=== PATIENT | male | born 1975 | race Caucasian/White ===

== ENCOUNTER 2020-07-13 20:38 | Inpatient (IN) | payer BC ==
[~2020-07-13] VITALS: Ht 177.8 cm; Wt 103.6 kg
[2020-07-13] MEDS ORDERED: SODIUM CHLORIDE 0.9% 1,000ML IVBOLUS ONE ×2 (22:00→23:00)
[2020-07-13] MEDS ORDERED: ONDANSETRON 2MG/ML, 2ML IVPush ONE (22:00)
[2020-07-13] MEDS ORDERED: SODIUM CHLORIDE FLUSH 10ML SYR IVF ONE (22:00)
[2020-07-13] MEDS ORDERED: MORPHINE SULFATE 4 MG/ML, 1ML ONE ×2 (22:08→23:51)
[2020-07-13] MEDS ORDERED: ONDANSETRON 2MG/ML, 2ML ONE (22:08)
[2020-07-13] MEDS: MORPHINE SULFATE 4 MG/ML, 1ML IVPush PRN ×2 (22:10→23:53)
[2020-07-13 22:29] LABS: MEAN CORPUSCULAR HEMOGLOBIN 31.1 pg (27.5-34.5); MEAN CORPUSCULAR HGB CONC 33.4 g/dL (33.2-36.2); MEAN PLATELET VOLUME 7.9 fL (7.4-10.4); PLATELET COUNT 105 x10^3/uL (130-400); RED BLOOD COUNT 4.87 x10^6/uL (4.38-5.82); RED CELL DISTRIBUTION WIDTH 12.9 % (9.4-14.8)
[2020-07-13 22:32] LABS: ALANINE AMINOTRANSFERASE 39 U/L (12-78); ALBUMIN 3.2 g/dL (3.4-5.0); ANION GAP 9 mmol/L (5-15); CALCIUM 8.4 mg/dL (8.5-10.1); CHLORIDE 96 mmol/L (98-107); CREATININE 1.25 mg/dL (0.7-1.3)
--- NOTE | 2020-07-13 22:33 | NUR ---
PT RESTING IN BED WITH BED SIDE, PT A/O X4 AND ON MONITOR. PT DENIED ANY WANTS OR NEEDS AT THIS TIME. RN WILL CONTINUE TO MONITOR PT VITALS
[2020-07-13 22:34] LABS: ALKALINE PHOSPHATASE 50 U/L (45-117); BILIRUBIN,TOTAL 1.4 mg/dL (0.2-1.0); TOTAL PROTEIN 7.2 g/dL (6.4-8.2)
--- NOTE | 2020-07-13 23:34 | NUR ---
PT REMINDED MULTIPLE TIMES THAT WE NEED URINE FOR UA TEST. PT STATED "HE STILL CAN NOT GO"
[2020-07-13] MEDS ORDERED: OMNIPAQUE 350 MG/ML, 100ML BOTTLE ONE (23:38)
[2020-07-13 23:58] LABS: BASOPHILS % (AUTO) 0 % (0-1); EOSINOPHILS % (AUTO) 0 % (1-7); LYMPHOCYTES # (AUTO) 0.41 x10^3/uL (1-3.4); LYMPHOCYTES % (AUTO) 4 % (22-44); MD SCAN; MONOCYTES # (AUTO) 0.77 x10^3/uL (0.2-0.8); MONOCYTES % (AUTO) 7 % (2-9); NEUTROPHILS # (AUTO) 9.69 x10^3/uL (1.8-6.8); NEUTROPHILS % (AUTO) 89 % (42-75)
[2020-07-14] MEDS ORDERED: CEFOTETAN PMX 2GM/50ML 50 ML IV ONE (00:30)
[2020-07-14 00:52] LABS: MICROSCOPIC INDICATED
[2020-07-14] MEDS ORDERED: BUPIVACAINE/PF 0.5% ONE (00:55)
[2020-07-14] MEDS ORDERED: EPINEPHRINE 1 MG/ML, 1ML ONE ×2 (00:55→02:49)
[2020-07-14] MEDS ORDERED: FENTANYL PF 100 MCG/2ML ONE ×4 (01:08→02:57)
[2020-07-14] MEDS ORDERED: MIDAZOLAM 1 MG/ML, 2ML ONE (01:08)
[2020-07-14] MEDS ORDERED: DEXAMETHASONE 4 MG/ML, 1ML ONE ×2 (01:14→02:49)
[2020-07-14] MEDS ORDERED: SUGAMMADEX 200 MG/2 ML IVPush ONE ×2 (01:14→03:13)
[2020-07-14] MEDS ORDERED: ONDANSETRON 2MG/ML, 2ML ONE (01:14)
[2020-07-14] MEDS ORDERED: LIDOCAINE-MPF 2% ,5ML ONE (01:14)
[2020-07-14] MEDS ORDERED: PROPOFOL 10 MG/ML, 20ML ONE (01:14)
[2020-07-14] MEDS ORDERED: SUCCINYLCHOLINE 20 MG/ML, 10ML ONE (01:14)
[2020-07-14] MEDS ORDERED: PROMETHAZINE 25 MG/ML, 1ML IVPush PRN (01:30)
[2020-07-14] MEDS ORDERED: ONDANSETRON 2MG/ML, 2ML IVPush PRN (01:30)
[2020-07-14] MEDS ORDERED: FENTANYL PF 100 MCG/2ML IV PRN (01:30)
[2020-07-14] MEDS ORDERED: EPHEDRINE 50 MG/ML, 1ML IVPush PRN (01:30)
[2020-07-14] MEDS ORDERED: OXYcodone 5 MG/5 ML ORAL.SOL UDC PO PRN (01:30)
[2020-07-14] MEDS ORDERED: LABETALOL 5MG/ML, 20ML IV PRN (01:30)
[2020-07-14] MEDS ORDERED: HYDROmorphone 1 MG/ML, 1ML INJ IVPush PRN (01:30)
[2020-07-14] MEDS ORDERED: MEPERIDINE/PF 25MG/0.5ML IVPush PRN (01:30)
[2020-07-14] MEDS ORDERED: hydrALAzine 20 MG/ML, 1ML IV PRN (01:30)
[2020-07-14] MEDS ORDERED: ACETAMINOPHEN 325 MG TABLET PO PRN ×2 (01:30→05:30)
[2020-07-14] MEDS ORDERED: ROCURONIUM 10 MG/ML,10ML ONE (02:26)
[2020-07-14] MEDS ORDERED: BUPIVACAINE/PF 0.25% ONE ×2 (02:49→02:50)
[2020-07-14] MEDS ORDERED: ACETAMINOPHEN 650 MG/20.3 ML UDC ONE (03:50)
[2020-07-14] MEDS ORDERED: OXYcodone 5 MG/5 ML ORAL.SOL UDC ONE (03:50)
[2020-07-14] MEDS: D5%-0.45NACL+KCL 20MEQ 1,000 ML IV SCH ×2 (05:27→17:42)
[2020-07-14] MEDS: CIPROFLOXACIN/PMX 400MG/200ML 200 ML IVPB SCH ×2 (05:28→18:24)
[2020-07-14] MEDS ORDERED: ONDANSETRON 2MG/ML, 2ML IV PRN ×2 (05:30)
[2020-07-14] MEDS ORDERED: DIPHENHYDRAMINE 25 MG CAPSULE PO PRN (05:30)
[2020-07-14] MEDS ORDERED: morphine SULFATE 10 MG/ML, 1ML IV PRN (05:30)
[2020-07-14] MEDS ORDERED: DIPHENHYDRAMINE 50 MG/ML, 1ML IV PRN (05:30)
[2020-07-14] MEDS ORDERED: ACETAMINOPHEN 650 MG SUPP PR PRN (05:30)
[2020-07-14 06:11] LABS: MEAN CORPUSCULAR HEMOGLOBIN 30.6 pg (27.5-34.5); MEAN CORPUSCULAR HGB CONC 32.7 g/dL (33.2-36.2); MEAN PLATELET VOLUME 7.4 fL (7.4-10.4); PLATELET COUNT 89 x10^3/uL (130-400); RED BLOOD COUNT 4.21 x10^6/uL (4.38-5.82); RED CELL DISTRIBUTION WIDTH 13.3 % (9.4-14.8)
[2020-07-14 06:15] LABS: ALBUMIN 2.6 g/dL (3.4-5.0); ANION GAP 5 mmol/L (5-15); CALCIUM 7.5 mg/dL (8.5-10.1); CHLORIDE 101 mmol/L (98-107); CREATININE 1.27 mg/dL (0.7-1.3)
[2020-07-14 06:33] LABS: BASOPHILS % (AUTO) 0 % (0-1); EOSINOPHILS % (AUTO) 0 % (1-7); LYMPHOCYTES # (AUTO) 0.24 x10^3/uL (1-3.4); LYMPHOCYTES % (AUTO) 3 % (22-44); MD SCAN; MONOCYTES # (AUTO) 0.15 x10^3/uL (0.2-0.8); MONOCYTES % (AUTO) 2 % (2-9); NEUTROPHILS # (AUTO) 7.15 x10^3/uL (1.8-6.8); NEUTROPHILS % (AUTO) 95 % (42-75)
[2020-07-14] MEDS: METRONIDAZOLE PMX 500MG/100ML 100 ML IVPB SCH ×2 (06:47→13:34)
[2020-07-14 07:45] VITALS: BP 107/76
[2020-07-14 12:30] VITALS: BP 110/75
[2020-07-14] MEDS: ENOXAPARIN 30 MG/0.3 ML SQ SCH (17:54)
[2020-07-14 19:58] VITALS: BP 129/77
[2020-07-14] MEDS: OXYcodone/APAP 5/325MG TABLET PO PRN (21:20)
[2020-07-15] MEDS: OXYcodone/APAP 5/325MG TABLET PO PRN (01:41)
[2020-07-15 01:50] VITALS: BP 128/79
[2020-07-15] MEDS: D5%-0.45NACL+KCL 20MEQ 1,000 ML IV SCH ×3 (02:36→21:07)
[2020-07-15] MEDS ORDERED: FLU VACC QS2020-21(6MOS UP)/PF 60MCG/0.5 ML SYR IM-VACC ONE (03:00)
[2020-07-15] MEDS: ENOXAPARIN 30 MG/0.3 ML SQ SCH ×2 (05:51→16:13)
[2020-07-15 07:47] VITALS: BP 117/69
[2020-07-15] MEDS: CIPROFLOXACIN/PMX 400MG/200ML 200 ML IV SCH ×2 (10:50→22:28)
[2020-07-15] MEDS: LACTOBACILLUS CHEW TABLET PO SCH ×3 (10:50→21:06)
[2020-07-15] MEDS: METRONIDAZOLE PMX 500MG/100ML 100 ML IV SCH ×2 (13:07→21:06)
[2020-07-15 13:34] VITALS: BP 111/77
[2020-07-15] MEDS: KETOROLAC 30 MG/1 ML IVPush PRN ×2 (16:19→22:28)
[2020-07-15 19:45] VITALS: BP 137/83
[2020-07-16 03:30] VITALS: BP 125/74
[2020-07-16] MEDS: METRONIDAZOLE PMX 500MG/100ML 100 ML IV SCH (05:36)
[2020-07-16] MEDS: ENOXAPARIN 30 MG/0.3 ML SQ SCH ×2 (05:36→17:07)
[2020-07-16] MEDS: D5%-0.45NACL+KCL 20MEQ 1,000 ML IV SCH ×3 (05:36→19:30)
[2020-07-16 06:22] LABS: BASOPHILS % (AUTO) 0 % (0-1); EOSINOPHILS % (AUTO) 0 % (1-7); LYMPHOCYTES % (AUTO) 11 % (22-44); MEAN CORPUSCULAR HEMOGLOBIN 31.2 pg (27.5-34.5); MEAN CORPUSCULAR HGB CONC 33.9 g/dL (33.2-36.2); MEAN PLATELET VOLUME 8.6 fL (7.4-10.4); MONOCYTES % (AUTO) 11 % (2-9); NEUTROPHILS % (AUTO) 78 % (42-75); PLATELET COUNT 108 x10^3/uL (130-400); RED BLOOD COUNT 3.51 x10^6/uL (4.38-5.82); RED CELL DISTRIBUTION WIDTH 13.4 % (9.4-14.8)
[2020-07-16 07:00] VITALS: BP 126/69
[2020-07-16] MEDS: LACTOBACILLUS CHEW TABLET PO SCH ×3 (08:03→21:08)
[2020-07-16] MEDS: KETOROLAC 30 MG/1 ML IVPush PRN ×3 (08:03→23:18)
[2020-07-16 08:18] LABS: MD SCAN
[2020-07-16 08:31] LABS: CLOSTRIDIUM DIFFICILE ANTIGEN NEGATIVE; CLOSTRIDIUM DIFFICILE TOXIN NEGATIVE (Negative)
[2020-07-16] MEDS: CIPROFLOXACIN 500 MG TABLET PO SCH ×2 (11:19→23:18)
[2020-07-16 13:16] VITALS: BP 118/74
[2020-07-16] MEDS: metroNIDAZOLE 500 MG TABLET PO SCH ×2 (13:25→21:08)
[2020-07-16] MEDS ORDERED: KETOROLAC 30 MG/1 ML ONE (13:30)
[2020-07-16 18:53] VITALS: BP 131/78
[2020-07-17] MEDS: D5%-0.45NACL+KCL 20MEQ 1,000 ML IV SCH (03:30)
[2020-07-17 04:00] VITALS: BP 128/69
[2020-07-17] MEDS: metroNIDAZOLE 500 MG TABLET PO SCH (05:56)
[2020-07-17] MEDS: KETOROLAC 30 MG/1 ML IVPush PRN (05:57)
[2020-07-17] MEDS: ENOXAPARIN 30 MG/0.3 ML SQ SCH (05:57)
[2020-07-17 07:26] VITALS: BP 143/77
[2020-07-17] MEDS: LACTOBACILLUS CHEW TABLET PO SCH (08:35)
[2020-07-17 08:59] LABS: BASOPHILS % (AUTO) 0 % (0-1); EOSINOPHILS % (AUTO) 1 % (1-7); LYMPHOCYTES % (AUTO) 13 % (22-44); MEAN CORPUSCULAR HEMOGLOBIN 30.7 pg (27.5-34.5); MEAN CORPUSCULAR HGB CONC 33.3 g/dL (33.2-36.2); MEAN PLATELET VOLUME 7.5 fL (7.4-10.4); MONOCYTES % (AUTO) 13 % (2-9); NEUTROPHILS % (AUTO) 73 % (42-75); PLATELET COUNT 221 x10^3/uL (130-400); RED BLOOD COUNT 4.06 x10^6/uL (4.38-5.82); RED CELL DISTRIBUTION WIDTH 12.8 % (9.4-14.8)
[2020-07-17 09:23] LABS: MD SCAN
[2020-07-17] MEDS ORDERED: OXYC-302 PO (10:12)
[2020-07-17] MEDS ORDERED: CIPR500T3 PO (10:13)
[2020-07-17] MEDS ORDERED: METR-90 PO (10:14)
[2020-07-17 10:55] VITALS: BP 138/82
== END 2020-07-17 11:30 | disposition home or self-care (01) | DRG 340 ==
LOC: ED 23:41 → EDIP 07-14 00:31 → 4NE 07-14 04:53
PROVIDERS: ADMIT Surgery; ATTEND Surgery
PROC: 0WJG4ZZ Inspection of Peritoneal Cavity, Percutaneous Endoscopic Approach (ICD-10-PCS; 2020-07-14)
PROC: 0DTJ0ZZ Resection of Appendix, Open Approach (ICD-10-PCS; principal; 2020-07-14 01:00)
DX: K35.32 Acute appendicitis with perforation, localized peritonitis, and gangrene, without abscess (principal); Z20.828 Contact with and (suspected) exposure to other viral communicable diseases; Z53.31 Laparoscopic surgical procedure converted to open procedure; K66.0 Peritoneal adhesions (postprocedural) (postinfection)
CPT/HCPCS: 36415; 74018; 74177; 80048; 80053; 81001; 82040; 83690; 85025; 87324; 87635; 88304; 90686; 96361; 96374; 96375; 96376; G0378; J0171; J0744; J1100; J1650; J1885; J2250; J2405; J2704; J3010; J3490; Q9967; J0330; J2270; J3480; J7030